=== PATIENT | female | born 1945 | race Caucasian/White ===

== ENCOUNTER 2019-01-29 00:23 | Emergency (ER) | payer OTHER | END 2019-01-29 01:57 | disposition home or self-care (01) | LOC: JER 00:23 ==

== ENCOUNTER 2021-10-23 04:56 | Day surgery (SDC) | payer OTHER ==
[2021-10-20 14:04] VITALS: BMI 25.9
[2021-10-23 08:30] VITALS: TEMP 97.7
[2021-10-23 09:54] VITALS: BP 130/60; PULSE 70
== END 2021-10-23 09:30 | disposition home or self-care (01) ==
LOC: JASU-ENDO 04:56
PROVIDERS: ATTEND Internal Medicine Gastroenterology
PROC: 0DJD8ZZ Inspection of Lower Intestinal Tract, Via Natural or Artificial Opening Endoscopic (ICD-10-PCS; principal; 2021-10-23 08:00)
DX: Z12.11 Encounter for screening for malignant neoplasm of colon (principal); K57.30 Diverticulosis of large intestine without perforation or abscess without bleeding; K64.8 Other hemorrhoids